=== PATIENT | male | born 1935 | race Hispanic/Latino ===

== ENCOUNTER 2024-05-20 05:53 | Day surgery (SDC) | payer OTHER, SELFPAY ==
[2024-05-20] VITALS (8 sets, daily range): BP systolic 115–140; BP diastolic 72–88; BMI 28.5
--- NOTE | 2024-05-20 07:49 | ITS.CL.ICD ---
Skip Operator - ICD
Implantable Cardioverter Defibrillator
Procedure Report:
BiV / ICD GENERATOR REMOVAL / IMPLANT REPORT
Date of Procedure: May 20, 2024
Primary Care Physician: ANEL Heller
Primary Radiographer Technologist: Dr. Dawson Orr
PROCEDURES:
1. Removal of BiV / ICD Generator
2. BiV / ICD Generator Implant
INDICATION FOR PROCEDURE:
1. ICD at [facility]
2. Current CHF Class 1 and patient is on guideline directed medical therapy at maximal tolerated dose for greater 3 months
3. Diagnosis of CHF initially made over 9 months ago
4. Life expectancy is greater than one year
5. Primary prevention at initial implant
6. Primary prevention at this generator change
7. Explanted device has delivered appropriate therapy: No
8. Anticoagulation Eliquis held for this procedure
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 Ejection
fraction and clinical status improved and he has been clinically stable without heart failure for several years. Last EF was normal by echo 4 years ago. He is referred for BiV ICD generator change due to battery at [facility].
ANTIBIOTIC: Ancef 2 g IV
SEDATION: Conscious sedation per anesthesia staff
DESCRIPTION OF PROCEDURE: 'Time-out' was called and confirmed. The patient was prepped and draped in sterile fashion. Lidocaine with epinephrine was used for local anesthesia. An incision was made along the previous incision and the device and
leads were carefully dissected from the pocket. Hemostasis was obtained with electrocautery. The leads were from the device header and tested using an external analyzer. The pocket was liberally irrigated with antibiotic solution. Once
testing (see below) showed adequate and stable function, the leads were connected to the generator header and the leads and generator were placed within the pocket. The pocket was closed in the typical fashion.
EXPLANTED ICD: Ba model [id number] serial #[id number] implanted 09/25/2017
IMPLANTS:
BiV / ICD: Ba model [id number], SN: [id number], Left Pectoral
EXISTING LEADS:
RA lead Ba 1944/52, SN: [id number] implanted: 09/25/2017
RV lead Ba JYK599V/58, SN: [id number] implanted: 09/25/2017
LV lead Ba 1458Q/86, SN: [id number] implanted: 09/25/2017
DEVICE TESTING
Sensing: RA 1.1 mV, RV 2.5 mV
Capture: RA 0.5 V@ 0.4 ms, RV 0.75 V@ 0.4 ms, LV 1.5 V@ 0.4ms
Ohms: RA 460 , RV 330, LV 540
FINAL PROGRAMMING:
Ruslan Pacing: DDDR 60-120ppm
Tachy parameters:
VF: 200 bpm, ATP while charging, Shock
VT: 171 bpm, Monitor
COMPLICATIONS: None.
CONCLUSIONS:
1. Explant of BiV ICD at [facility]
2. Successful implant of BiV ICD generator.
3. In-office wound check in 1 week and device check in 10 days.
Copy to: ANEL Heller
--- NOTE | 2024-05-20 08:28 | W.ICD.CONTRA ---
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
-
History of [place]?: No
LV Function
Left ventricular function study result?: Ejection Fraction >/= 40%
ACEI/ARB/ARNI
Patient already on ACEI/ARB/ARNI: Yes
Beta-Nik
Patient already on Beta Nik: Yes
== END 2024-05-20 10:50 | disposition home or self-care (01) ==
LOC: CATH 05:53
PROVIDERS: ATTENDING PHYSICIAN Internal Medicine Interventional Cardiology; PRIMARYCARE PHYSICIAN Nurse Practitioner; REFERRING PHYSICIAN Internal Medicine Cardiovascular Disease
DX: Z45.02 Encounter for adjustment and management of automatic implantable cardiac defibrillator (principal); I25.10 Atherosclerotic heart disease of native coronary artery without angina pectoris; I50.9 Heart failure, unspecified; I42.9 Cardiomyopathy, unspecified; Z79.01 Long term (current) use of anticoagulants; Z79.899 Other long term (current) drug therapy; I25.5 Ischemic cardiomyopathy; E78.5 Hyperlipidemia, unspecified; I48.20 Chronic atrial fibrillation, unspecified; Z86.73 Personal history of transient ischemic attack (TIA), and cerebral infarction without residual deficits
CPT/HCPCS: 33264; C1882